=== PATIENT | female | born 1950 | race Caucasian/White ===

== ENCOUNTER 2019-04-04 04:42 | Inpatient (IN) ==
[2019-04-04] MEDS ORDERED: Isovue-370 500 ML BOTTLE IVP ONE ×3 (05:01→05:42)
--- NOTE | 2019-04-04 05:11 | Emergency Department Note ---
Disposition Clinical Impression: Nausea & vomiting Qualifiers: Vomiting type: unspecified Vomiting Intractability: unspecified Qualified Code(s): R11.2 - Nausea with vomiting, unspecified Disposition: Still a Patient Referrals: Golden Rivera [Primary Care Provider] - Forms: ED Satisfaction Letter Time of Disposition: 07:05 General Adult HPI - General Stated complaint: N/V Time Seen by Provider: 04/04/19 04:49 Source: patient, family, EMS Mode of arrival: EMS Limitations: no limitations Nursing Notes Reviewed: Yes Vital Signs Reviewed: Yes - History of Present Illness HPI Narrative: Patient is a 53-year-old female history of lung cancer and radiation presenting the emergency department for nausea and vomiting. Patient states that partially 4 hours ago she developed severe nausea and vomiting as well as chest pain and shortness of breath. Patient states she is here at the hospital yesterday for radiation treatment and received IV fluids. Patient describes the chest pain is substernal pressure that does not radiate. The patient does not use oxygen at home. EMS reported her pulse ox at 89% here on 2 L. - Related Data Home Medications Medication Instructions Recorded Confirmed Acetaminophen [Tylenol] 500 mg PO Q6HR 03/20/19 03/29/19 Albuterol Sulfate [Proventil 2 puff IH Q6HR 03/20/19 03/29/19 Inhaler] Levothyroxine [Synthroid] 50 mcg PO 0630 03/20/19 03/29/19 Metoprolol [Lopressor] 25 mg PO DAILY 03/20/19 03/29/19 Morphine Sulfate [Arymo ER] 15 mg PO Q12H PRN 03/20/19 03/29/19 Multivitamin [One Daily] 1 each PO DAILY 03/20/19 03/29/19 Ondansetron HCl [Zofran] 4 mg PO Q6H PRN 03/20/19 03/29/19 Polyethylene Glycol 3350 [MiraLAX] 17 gm PO DAILY 03/20/19 03/29/19 Prochlorperazine Maleate 10 mg PO Q6HR 03/20/19 03/29/19 [Compazine] metFORMIN [Glucophage] 500 mg PO BIDWM 03/20/19 03/29/19 Lidocaine/Prilocaine CREAM [Emla] 1 gm TP ONCE 03/29/19 03/29/19 Magic Mouthwash [Magic Mouthwash 10 ml PO QID PRN 03/29/19 03/29/19 BLM] Allergies Allergy/AdvReac Type Severity Reaction Status Date / Time No Known Allergies Allergy Verified 03/29/19 08:36 All systems ED: reviewed and negative except as stated. Review of Systems: As Per HPI Constitutional: Denies: fever, chills Eyes: Denies: eye pain, eye discharge ENT ED: Denies: ear pain, throat pain Cardiovascular: Reports: chest pain, palpitations, dyspnea on exertion Respiratory: Reports: cough. Denies: dyspnea Gastrointestinal: Reports: abdominal pain, nausea, vomiting Genitourinary: Denies: urgency, dysuria Musculoskeletal: Denies: back pain, neck pain Integumentary: Denies: rash, abrasion Neurological: Denies: headache, weakness Psychiatric: Denies: anxiety, depression Endocrine: Denies: fatigue, heat or cold intolerance Hematological/Lymphatic: Denies: easy bleeding, easy bruising Allergic/Immunologic: Denies: facial swelling Past Medical History - Past Medical History Attestation: Yes The following information was validated with the patient. Medical history: Reports: cancer, diabetes, thyroid disease Psychiatric history: Reports: no psych history - Social History Smoking Status: Light tobacco smoker Smokeless Tobacco Status: No Alcohol use: Reports: none Drug use: Reports: none Physical Exam - General Limitations: no limitations General appearance: alert, in no apparent distress - Head Head exam: atraumatic, normocephalic - Eye Eye exam: Present: normal appearance, PERRL, EOMI. Absent: scleral icterus, conjunctival injection - ENT ENT exam: normal exam, normal oropharynx, mucous membranes moist - Neck Neck exam: Present: normal inspection, full ROM - Chest Chest inspection: Present: normal inspection, symmetric chest wall rise - Respiratory Respiratory exam: Present: other (Course lung sounds on the right side diminished left) - Cardiovascular Cardiovascular exam: Present: normal rhythm, tachycardia, normal heart sounds - Abdominal Exam Abdominal exam: Present: soft, Non-Tender. Absent: tenderness, distention, guarding - Extremities Exam Extremities exam: Present: other (Right-sided 1+ pitting edema) - Neurological Exam Neurological exam: Present: alert, oriented X3 - Psychiatric Psychiatric exam: Present: normal affect, normal mood - Skin Skin exam: Present: warm, dry Course Vital Signs Temperature 97.7 F 04/04/19 04:54 Pulse Rate 111 04/04/19 04:54 Respiratory Rate 31 04/04/19 04:54 Blood Pressure 157/84 04/04/19 04:54 O2 Sat by Pulse Oximetry 90 04/04/19 04:54 Temperature 97.7 F 04/04/19 04:54 Pulse Rate 117 04/04/19 06:31 Respiratory Rate 34 04/04/19 06:31 Blood Pressure 132/88 04/04/19 06:31 O2 Sat by Pulse Oximetry 96 04/04/19 06:31 Oxygen Delivery Oxygen Delivery Bipap Medical Decision Making - MDM Narrative Medical decision making narrative: Patient 58-year-old female history of cancer presenting emergency department with nausea and vomiting, chest pain, shortness of breath, hypoxia concerning for pulmonary embolism or cardiopulmonary cause. We will evaluate this with basic labs and a CT scan of the chest and abdomen and pelvis. Patient was hypoxic and we gradually sent up from nasal cannula to a Ventimask. The patient was satting in the low 80s and it was decided to start BiPAP. She responded well up to 95 with this. Patient signed out to the day team. Dr. Keshia Jade. Please refer to her note for further evaluation and treatment of the patient. - Medical Records Medical records reviewed: Yes I reviewed the patient's medical records. - Lab Data Lab results reviewed: Yes I reviewed the patient's lab results. Result diagrams: 04/04/19 05:17 04/04/19 05:17 Lab Results 04/04/19 04/04/19 04/04/19 Range/Units 05:17 05:17 05:17 WBC 8.0 (4.3-11.1) K/mcL RBC 3.98 (3.82-4.97) M/mcL Hgb 11.2 L (11.5-15.4) g/dL Hct 35.9 (35.3-44.9) % MCV 90.2 (83.0-100.0) fL MCH 28.1 (28.0-33.3) pg MCHC 31.2 L (31.6-35.5) g/dL RDW 16.1 H (11.5-14.5) % Plt Count 132 L (140-400) K/mcL MPV 9.4 (9.4-12.4) fL Immature Gran % 0.9 (0-4) % Seg Neutrophils % 90.0 % Lymphocytes % 3.1 % Monocytes % 5.6 % Eosinophils % 0.0 % Basophils % 0.4 % Neutrophils # 7.2 (1.6-8.9) K/mcL Lymphocytes # 0.3 L (0.6-4.6) K/mcL Monocytes # 0.5 (0.0-1.3) K/mcL Eosinophils # 0.0 (0.0-0.6) K/mcL Basophils # 0.0 (0.0-0.2) K/mcL Nucleated RBCs/100 WBC 0.4 H (0) /100 WBC Platelet Estimate Normal (Normal) Polychromasia 1+ A (Not Present) Macrocytosis Present A (Not Present) PT 16.6 H (9.4-12.1) Seconds INR 1.5 APTT 25.4 L (26.0-36.0) Seconds Sodium 136 (136-145) mEq/L Potassium 4.5 (3.5-5.1) mEq/L Chloride 95 L (98-107) mEq/L Carbon Dioxide 27 (23-29) mEq/L BUN 37 H (8-23) mg/dL Creatinine 1.63 H (0.60-1.20) mg/dL Est GFR ( Amer) 38 L (> 60) Est GFR (Non-Af Amer) 31 L (> 60) BUN/Creatinine Ratio 23 (6-26) Glucose 211 H (70-105) mg/dL Calculated Osmolality 297 (280-300) Calcium 8.7 (8.6-10.3) mg/dL Troponin I < 0.03 (< 0.04) ng/mL Lipase < 3 L (11-82) Units/L - Radiology Data Radiology results reviewed: Yes I reviewed the patient's radiology results. - EKG Data EKG #1 EKG attestation: Yes I reviewed and interpreted this EKG. EKG results narrative: EKG performed at 624 reviewed by myself and attending shows a ventricular bigeminal rhythm at a rate of 125, SD 117, QRS 82, QTC 407. There are no new ST elevations or T-wave changes no other signs of ischemia. When compared with EKG performed on the same day earlier she has a new bigeminal pattern. EKG #2 EKG attestation: Yes I reviewed and interpreted this EKG. EKG results narrative: EKG performed at 624 reviewed by myself and attending shows a ventricular bigeminal rhythm at a rate of 125, SD 117, QRS 82, QTC 407. There are no new ST elevations or T-wave changes no other signs of ischemia. When compared with EKG performed on the same day earlier she has a new bigeminal pattern. S.B.A.R. - S.B.A.R. Transition of Care: Sign out Situation: Demographics, MOA Background: Presenting Complaint, Relevant PMH, Meds, & Allergies Assessment: Vital Signs, Course and respsone to treatment, Exam Concerns, Patient/Family Expectation, Pertinant Lab Results, Outstanding Labs Recommendation: Barrier(s) to disposition, Recommendation based on pending studies, treatments, or consults S.B.A.R. Report Given to: Keshia Jade
[2019-04-04] MEDS ORDERED: Ondansetron 4 MG/2 ML VIAL IVP ONE (05:12)
[2019-04-04 05:30] LABS: Basophils % 0.4 %; Hematocrit 35.9 % (35.3-44.9); Hemoglobin 11.2 g/dL (11.5-15.4); Immature Granulocytes % 0.9 % (0-4); Lymphocytes # 0.3 K/mcL (0.6-4.6); Lymphocytes % 3.1 %; Mean Corpuscular HGB Conc 31.2 g/dL (31.6-35.5); Mean Corpuscular Hemoglobin 28.1 pg (28.0-33.3); Mean Corpuscular Volume 90.2 fL (83.0-100.0); Mean Platelet Volume 9.4 fL (9.4-12.4); Monocytes # 0.5 K/mcL (0.0-1.3); Monocytes % 5.6 %; Neutrophils # 7.2 K/mcL (1.6-8.9); Nucleated Red Blood Cells 0.4 /100 WBC (0); Platelet Count 132 K/mcL (140-400); Red Blood Count 3.98 M/mcL (3.82-4.97); Red Cell Distribution Width 16.1 % (11.5-14.5)
[2019-04-04 05:39] LABS: INR 1.5; Prothrombin Time 16.6 Seconds (9.4-12.1)
[2019-04-04 05:41] LABS: Activated Partial Thrombo Time 25.4 Seconds (26.0-36.0)
[2019-04-04 05:45] LABS: Macrocytosis Present (Not Present); Platelet Estimate Normal (Normal); Polychromasia 1+ (Not Present)
[2019-04-04 05:52] LABS: BUN/Creatinine Ratio 23 (6-26); Blood Urea Nitrogen 37 mg/dL (8-23); Calcium 8.7 mg/dL (8.6-10.3); Carbon Dioxide 27 mEq/L (23-29); Chloride 95 mEq/L (98-107); Glucose 211 mg/dL (70-105); Osmolality,Calculated 297 (280-300); Potassium 4.5 mEq/L (3.5-5.1); Sodium 136 mEq/L (136-145); Troponin I < 0.03 ng/mL (< 0.04); eGFR For African Americans 38 (> 60); eGFR For Non-African Americans 31 (> 60)
[2019-04-04 06:11] LABS: Lipase < 3 Units/L (11-82)
[2019-04-04] MEDS: Aspirin 81 MG TAB.CHEW PO ONE ×2 (06:12→07:34)
--- NOTE | 2019-04-04 06:14 | Emergency Department Note ---
Disposition Clinical Impression: Nausea & vomiting Qualifiers: Vomiting type: unspecified Vomiting Intractability: unspecified Qualified Code(s): R11.2 - Nausea with vomiting, unspecified Disposition: Still a Patient Condition: Good Referrals: Golden Rivera [Primary Care Provider] - Forms: ED Satisfaction Letter Time of Disposition: 06:59 General Adult HPI - General Chief complaint: ED Nausea/Vomiting/Diarrhea Stated complaint: N/V Time Seen by Provider: 04/04/19 04:49 Source: patient, family, EMS Mode of arrival: EMS Limitations: no limitations - History of Present Illness Pain Scale: 5 - Related Data Home Medications Medication Instructions Recorded Confirmed Acetaminophen [Tylenol] 500 mg PO Q6HR 03/20/19 03/29/19 Albuterol Sulfate [Proventil 2 puff IH Q6HR 03/20/19 03/29/19 Inhaler] Levothyroxine [Synthroid] 50 mcg PO 0630 03/20/19 03/29/19 Metoprolol [Lopressor] 25 mg PO DAILY 03/20/19 03/29/19 Morphine Sulfate [Arymo ER] 15 mg PO Q12H PRN 03/20/19 03/29/19 Multivitamin [One Daily] 1 each PO DAILY 03/20/19 03/29/19 Ondansetron HCl [Zofran] 4 mg PO Q6H PRN 03/20/19 03/29/19 Polyethylene Glycol 3350 [MiraLAX] 17 gm PO DAILY 03/20/19 03/29/19 Prochlorperazine Maleate 10 mg PO Q6HR 03/20/19 03/29/19 [Compazine] metFORMIN [Glucophage] 500 mg PO BIDWM 03/20/19 03/29/19 Lidocaine/Prilocaine CREAM [Emla] 1 gm TP ONCE 03/29/19 03/29/19 Magic Mouthwash [Magic Mouthwash 10 ml PO QID PRN 03/29/19 03/29/19 BLM] Allergies Allergy/AdvReac Type Severity Reaction Status Date / Time No Known Allergies Allergy Verified 03/29/19 08:36 Constitutional: Denies: fever, chills Eyes: Denies: eye pain, eye discharge ENT ED: Denies: ear pain, throat pain Cardiovascular: Reports: chest pain, palpitations, dyspnea on exertion Respiratory: Reports: cough. Denies: dyspnea Gastrointestinal: Reports: abdominal pain, nausea, vomiting Genitourinary: Denies: urgency, dysuria Musculoskeletal: Denies: back pain, neck pain Integumentary: Denies: rash, abrasion Neurological: Denies: headache, weakness Psychiatric: Denies: anxiety, depression Endocrine: Denies: fatigue, heat or cold intolerance Hematological/Lymphatic: Denies: easy bleeding, easy bruising Allergic/Immunologic: Denies: facial swelling Past Medical History - Past Medical History Medical history: Reports: cancer, diabetes, thyroid disease Psychiatric history: Reports: no psych history - Social History Smoking Status: Light tobacco smoker Smokeless Tobacco Status: No Alcohol use: Reports: none Drug use: Reports: none Physical Exam - General Limitations: no limitations General appearance: alert, in no apparent distress Course Vital Signs Temperature 97.7 F 04/04/19 04:54 Pulse Rate 111 04/04/19 04:54 Respiratory Rate 31 04/04/19 04:54 Blood Pressure 157/84 04/04/19 04:54 O2 Sat by Pulse Oximetry 90 04/04/19 04:54 Temperature 97.7 F 04/04/19 04:54 Pulse Rate 117 04/04/19 06:31 Respiratory Rate 34 04/04/19 06:31 Blood Pressure 132/88 04/04/19 06:31 O2 Sat by Pulse Oximetry 96 04/04/19 06:31 Oxygen Delivery Oxygen Delivery Bipap Medical Decision Making - Lab Data Result diagrams: 04/04/19 05:17 04/04/19 05:17 Lab Results 04/04/19 04/04/19 04/04/19 Range/Units 05:17 05:17 05:17 WBC 8.0 (4.3-11.1) K/mcL RBC 3.98 (3.82-4.97) M/mcL Hgb 11.2 L (11.5-15.4) g/dL Hct 35.9 (35.3-44.9) % MCV 90.2 (83.0-100.0) fL MCH 28.1 (28.0-33.3) pg MCHC 31.2 L (31.6-35.5) g/dL RDW 16.1 H (11.5-14.5) % Plt Count 132 L (140-400) K/mcL MPV 9.4 (9.4-12.4) fL Immature Gran % 0.9 (0-4) % Seg Neutrophils % 90.0 % Lymphocytes % 3.1 % Monocytes % 5.6 % Eosinophils % 0.0 % Basophils % 0.4 % Neutrophils # 7.2 (1.6-8.9) K/mcL Lymphocytes # 0.3 L (0.6-4.6) K/mcL Monocytes # 0.5 (0.0-1.3) K/mcL Eosinophils # 0.0 (0.0-0.6) K/mcL Basophils # 0.0 (0.0-0.2) K/mcL Nucleated RBCs/100 WBC 0.4 H (0) /100 WBC Platelet Estimate Normal (Normal) Polychromasia 1+ A (Not Present) Macrocytosis Present A (Not Present) PT 16.6 H (9.4-12.1) Seconds INR 1.5 APTT 25.4 L (26.0-36.0) Seconds Sodium 136 (136-145) mEq/L Potassium 4.5 (3.5-5.1) mEq/L Chloride 95 L (98-107) mEq/L Carbon Dioxide 27 (23-29) mEq/L BUN 37 H (8-23) mg/dL Creatinine 1.63 H (0.60-1.20) mg/dL Est GFR ( Amer) 38 L (> 60) Est GFR (Non-Af Amer) 31 L (> 60) BUN/Creatinine Ratio 23 (6-26) Glucose 211 H (70-105) mg/dL Calculated Osmolality 297 (280-300) Calcium 8.7 (8.6-10.3) mg/dL Troponin I < 0.03 (< 0.04) ng/mL Lipase < 3 L (11-82) Units/L Attestation Statement - Attestation Attestation: I examined this patient and my medical decision-making was reviewed with the Resident Physician. I agree with the documented findings, disposition and treatment plan as described except to the extent set forth below. Patient 68-year-old female with prior history of lung cancer that presents to the emergency department with chief complaint of chest pain and shortness of breath. The patient also has been having nausea and vomiting and diarrhea and is felt like she has been extremely dehydration. Physical exam patient is awake alert requiring supplemental oxygen the patient is mildly Lower extremity she has some mild edema present abdomen is soft but te nder to palpation Medical decision management given the patient's prior history of neoplasm and the history of shortness of breath requiring oxygen patient cannot be excluded for the possibility of pulmonary embolism the patient will undergo CT imaging of the chest and also the abdomen pelvis will be included during the scan. The patient was started on BiPAP because she was requiring additional oxygen that can be provided be either nasal cannula or Venturi mask. I personally supervised and was present for the sarabia/critical portions of the following procedures completed by the resident:EKG.
[2019-04-04] MEDS ORDERED: 0.9 % Sodium Chloride 1,000 ML IVC ONE ×3 (07:45→22:53)
[2019-04-04] MEDS ORDERED: Piperacillin/Tazobactam 3.375 GM in 0.9 % Sodium Chloride Mini Bag 100 ML IVPB ONE (07:45)
[2019-04-04] MEDS ORDERED: *HR* FentaNYL (PF) 100 MCG/2 ML VIAL IVP ONE (07:47)
[2019-04-04] MEDS ORDERED: Metoclopramide 10 MG/2 ML VIAL IVP ONE (07:47)
[2019-04-04] MEDS ORDERED: *HR* Metoprolol 5 MG/5 ML VIAL IVP ONE (08:01)
--- NOTE | 2019-04-04 08:12 | Emergency Department Note ---
Disposition Clinical Impression: Intestinal necrosis, Abdominal abscess, Atrial fibrillation with RVR, Pneumatosis intestinalis Disposition: Admitted As Inpatient Condition: Fair Time of Disposition: 08:14 General Adult HPI - General Chief complaint: ED Nausea/Vomiting/Diarrhea Stated complaint: N/V Time Seen by Provider: 04/04/19 04:49 Source: patient, family, EMS Mode of arrival: EMS Limitations: no limitations - History of Present Illness Pain Scale: 4 - Related Data Home Medications Medication Instructions Recorded Confirmed Acetaminophen [Tylenol] 500 mg PO Q6HR 03/20/19 03/29/19 Albuterol Sulfate [Proventil 2 puff IH Q6HR 03/20/19 03/29/19 Inhaler] Levothyroxine [Synthroid] 50 mcg PO 0630 03/20/19 03/29/19 Metoprolol [Lopressor] 25 mg PO DAILY 03/20/19 03/29/19 Morphine Sulfate [Arymo ER] 15 mg PO Q12H PRN 03/20/19 03/29/19 Multivitamin [One Daily] 1 each PO DAILY 03/20/19 03/29/19 Ondansetron HCl [Zofran] 4 mg PO Q6H PRN 03/20/19 03/29/19 Polyethylene Glycol 3350 [MiraLAX] 17 gm PO DAILY 03/20/19 03/29/19 Prochlorperazine Maleate 10 mg PO Q6HR 03/20/19 03/29/19 [Compazine] metFORMIN [Glucophage] 500 mg PO BIDWM 03/20/19 03/29/19 Lidocaine/Prilocaine CREAM [Emla] 1 gm TP ONCE 03/29/19 03/29/19 Magic Mouthwash [Magic Mouthwash 10 ml PO QID PRN 03/29/19 03/29/19 BLM] Allergies Allergy/AdvReac Type Severity Reaction Status Date / Time No Known Allergies Allergy Verified 03/29/19 08:36 Constitutional: Denies: fever, chills Eyes: Denies: eye pain, eye discharge ENT ED: Denies: ear pain, throat pain Cardiovascular: Reports: chest pain, palpitations, dyspnea on exertion Respiratory: Reports: cough. Denies: dyspnea Gastrointestinal: Reports: abdominal pain, nausea, vomiting Genitourinary: Denies: urgency, dysuria Musculoskeletal: Denies: back pain, neck pain Integumentary: Denies: rash, abrasion Neurological: Denies: headache, weakness Psychiatric: Denies: anxiety, depression Endocrine: Denies: fatigue, heat or cold intolerance Hematological/Lymphatic: Denies: easy bleeding, easy bruising Allergic/Immunologic: Denies: facial swelling Past Medical History - Past Medical History Medical history: Reports: cancer, diabetes, thyroid disease Psychiatric history: Reports: no psych history - Social History Smoking Status: Light tobacco smoker Smokeless Tobacco Status: No Alcohol use: Reports: none Drug use: Reports: none Physical Exam - General Limitations: no limitations General appearance: alert, in no apparent distress Course - Reevaluation(s) Reevaluation #1: patient became incresingly more hypoxic and appears to be tiring out. WE have discussed the need for an ET tube and she had agreed. I have update dDr. Monzon and Dr. Andres on her status. Time: 10:01 - Consultations Consultation #1: Dr. Montoya has called to inform that jorge alberto has pneumoperitoneum with absceess and necrosis of the jejenum and dudodenum. I have discussed case with Dr. Garcia who will be in the ED shortly to examine patient. Jorge Alberto is now afib RVR as she as 77 bpm rate controlle don intial presentation and I anticipate that she i going into severe sepsis. I have added lactic acid and blood cultures and tammie slowly deliver the 30ml/kg IVF as she has mild ascites and pulmonary edema and would jose guadalupe to avoid have her go into respiatory distess. I have discussed with patient her code status and it is full code. I have added zosyn therapy at this time. Will consider intubation if she does not othewise improve or requires a central line Time: 08:12 Consultation #2: discussed case with Dr. Andres who has accepted patient ot the ICU. Dr. garcia at bedside currenty examining jorge alberto and has requested NG tube placement. discusssed with family and ptinet and they are agreeable to plan Time: 08:43 Vital Signs Temperature 97.7 F 04/04/19 04:54 Pulse Rate 111 04/04/19 04:54 Respiratory Rate 31 04/04/19 04:54 Blood Pressure 157/84 04/04/19 04:54 O2 Sat by Pulse Oximetry 90 04/04/19 04:54 Temperature 97.7 F 04/04/19 04:54 Pulse Rate 134 04/04/19 09:19 Respiratory Rate 32 04/04/19 08:55 Blood Pressure 122/73 04/04/19 09:19 O2 Sat by Pulse Oximetry 84 04/04/19 09:19 Oxygen Delivery Oxygen Delivery Bipap Procedures - Intubation Time out performed: Yes sedative: Etomidate Mg Given: 20 paralytic: Rocuronium Mg Given: 100 Laryngoscope: Hilary ET Tube Size: 7 ET Tube Uncuffed: Yes Tube Secured Depth (cm): 25 Tube Secured Location: lips Tube Placement Confirmation: visualized tube passing through cords, equal breath sounds bilaterally, no breath sounds over epigastrium Patient Tolerated Procedure: well Intubation Complications: hypotension, other (vomitus in the airway) Medical Decision Making - Lab Data Result diagrams: 04/04/19 05:17 04/04/19 05:17 Lab Results 04/04/19 04/04/19 04/04/19 Range/Units 05:17 05:17 05:17 WBC 8.0 (4.3-11.1) K/mcL RBC 3.98 (3.82-4.97) M/mcL Hgb 11.2 L (11.5-15.4) g/dL Hct 35.9 (35.3-44.9) % MCV 90.2 (83.0-100.0) fL MCH 28.1 (28.0-33.3) pg MCHC 31.2 L (31.6-35.5) g/dL RDW 16.1 H (11.5-14.5) % Plt Count 132 L (140-400) K/mcL MPV 9.4 (9.4-12.4) fL Immature Gran % 0.9 (0-4) % Seg Neutrophils % 90.0 % Lymphocytes % 3.1 % Monocytes % 5.6 % Eosinophils % 0.0 % Basophils % 0.4 % Neutrophils # 7.2 (1.6-8.9) K/mcL Lymphocytes # 0.3 L (0.6-4.6) K/mcL Monocytes # 0.5 (0.0-1.3) K/mcL Eosinophils # 0.0 (0.0-0.6) K/mcL Basophils # 0.0 (0.0-0.2) K/mcL Nucleated RBCs/100 WBC 0.4 H (0) /100 WBC Platelet Estimate Normal (Normal) Polychromasia 1+ A (Not Present) Macrocytosis Present A (Not Present) PT 16.6 H (9.4-12.1) Seconds INR 1.5 APTT 25.4 L (26.0-36.0) Seconds Sodium 136 (136-145) mEq/L Potassium 4.5 (3.5-5.1) mEq/L Chloride 95 L (98-107) mEq/L Carbon Dioxide 27 (23-29) mEq/L BUN 37 H (8-23) mg/dL Creatinine 1.63 H (0.60-1.20) mg/dL Est GFR ( Amer) 38 L (> 60) Est GFR (Non-Af Amer) 31 L (> 60) BUN/Creatinine Ratio 23 (6-26) Glucose 211 H (70-105) mg/dL Calculated Osmolality 297 (280-300) Lactic Acid (0.5-2.2) mmol/L Calcium 8.7 (8.6-10.3) mg/dL Troponin I < 0.03 (< 0.04) ng/mL Lipase < 3 L (11-82) Units/L 04/04/19 Range/Units 08:03 WBC (4.3-11.1) K/mcL RBC (3.82-4.97) M/mcL Hgb (11.5-15.4) g/dL Hct (35.3-44.9) % MCV (83.0-100.0) fL MCH (28.0-33.3) pg MCHC (31.6-35.5) g/dL RDW (11.5-14.5) % Plt Count (140-400) K/mcL MPV (9.4-12.4) fL Immature Gran % (0-4) % Seg Neutrophils % % Lymphocytes % % Monocytes % % Eosinophils % % Basophils % % Neutrophils # (1.6-8.9) K/mcL Lymphocytes # (0.6-4.6) K/mcL Monocytes # (0.0-1.3) K/mcL Eosinophils # (0.0-0.6) K/mcL Basophils # (0.0-0.2) K/mcL Nucleated RBCs/100 WBC (0) /100 WBC Platelet Estimate (Normal) Polychromasia (Not Present) Macrocytosis (Not Present) PT (9.4-12.1) Seconds INR APTT (26.0-36.0) Seconds Sodium (136-145) mEq/L Potassium (3.5-5.1) mEq/L Chloride (98-107) mEq/L Carbon Dioxide (23-29) mEq/L BUN (8-23) mg/dL Creatinine (0.60-1.20) mg/dL Est GFR ( Amer) (> 60) Est GFR (Non-Af Amer) (> 60) BUN/Creatinine Ratio (6-26) Glucose (70-105) mg/dL Calculated Osmolality (280-300) Lactic Acid 2.0 (0.5-2.2) mmol/L Calcium (8.6-10.3) mg/dL Troponin I (< 0.04) ng/mL Lipase (11-82) Units/L
--- NOTE | 2019-04-04 08:47 | AcuteCare Surgery Consult Note ---
Date of Encounter: 04/04/19 Time of Encounter: 08:25 Assessment and Plan (1) Abdominal abscess Current Visit: Yes Status: Acute Abdominal abscess formation with pneumatosis of the small bowel likely secondary to small bowel necrosis. She is hypoxic with large pleural effusion on the left. She is currently undergoing radiation and chemotherapy for stage III lung cancer with curative intent. She has A. fib with RVR. We will plan admission to the intensive care unit and stabilization. She will require exploratory laparotomy for treatment of the small bowel necrosis History of Present Illness Consult date: 04/04/19 Reason for consult: abdominal pain History of present illness: The patient is a 68-year-old female currently under treatment for lung cancer. She received both chemotherapy and radiation therapy. She had thoracentesis last week. She presented to the emergency room with nausea and vomiting and hypoxia. During evaluation she developed tachycardia with atrial fibrillation. A CAT scan demonstrated a significant left pleural effusion with collapse of the left lower lobe lobe. Proximal small bowel pneumatosis with a small amount of pneumoperitoneum and abscess formation is noted. The patient has a massively dilated stomach. We will plan to discuss her care with her computer systems technician oncologist to outline the goals of care area she will need nasogastric tube decompression. We will plan to place her in the intensive care unit secondary to hypoxia. I will consult thoracic surgery for management of the left pleural effusion and hypoxia. Pulmonary critical care will also be involved in her care. She may require exploratory laparotomy later today. With her current level of hypoxia and poor overall condition she she would have a high mortality and morbidity rate with exploratory laparotomy. Next I personally reviewed the CAT scan of the abdomen. She does have areas of pneumoperitoneum as well as abscess formation and pneumatosis of the proximal jejunum. This appears to have caused obstruction. Distal small bowel was flaccid. Proximal jejunum and duodenum are dilated Past Med Surg Social Fam HX - Past Medical History Medical history: cancer, diabetes, thyroid disease Additional medical history: Lung Cancer Psychiatric history: no psych history - Past Surgical History Additional surgical history: tubal, skin graft leg - Social History Smoking Status: Light tobacco smoker Smokeless Tobacco Status: No Alcohol use: none Drug use: none Medications and Allergies Acetaminophen [Tylenol] 500 mg PO Q6HR 03/20/19 [History] Albuterol Sulfate [Proventil Inhaler] 2 puff IH Q6HR 03/20/19 [History] Levothyroxine [Synthroid] 50 mcg PO 0630 03/20/19 [History] Metoprolol [Lopressor] 25 mg PO DAILY 03/20/19 [History] Morphine Sulfate [Arymo ER] 15 mg PO Q12H PRN 03/20/19 [History] Multivitamin [One Daily] 1 each PO DAILY 03/20/19 [History] Ondansetron HCl [Zofran] 4 mg PO Q6H PRN 03/20/19 [History] Polyethylene Glycol 3350 [MiraLAX] 17 gm PO DAILY 03/20/19 [History] Prochlorperazine Maleate [Compazine] 10 mg PO Q6HR 03/20/19 [History] metFORMIN [Glucophage] 500 mg PO BIDWM 03/20/19 [History] Lidocaine/Prilocaine CREAM [Emla] 1 gm TP ONCE 03/29/19 [History] Magic Mouthwash [Magic Mouthwash BLM] 10 ml PO QID PRN 03/29/19 [History] Allergy/AdvReac Type Severity Reaction Status Date / Time No Known Allergies Allergy Verified 03/29/19 08:36 Review of Systems All systems PM: The remainder of the systems were reviewed and are negative General Surgery Exam Initial Vital Signs Temp Pulse Resp BP Pulse Ox 97.7 F 111 31 157/84 90 04/04/19 04:54 04/04/19 04:54 04/04/19 04:54 04/04/19 04:54 04/04/19 04:54 - General physical appearance severe distress, other (Hypoxic and struggling to breathe. She is nauseated) - Respiratory crackles: right, wheezing: right, absent breath sounds: left - Cardiovascular Cardiovascular exam: Present: tachycardia, irregular rhythm, no murmurs/rubs/gallops - Abdomen Abdomen general surgery: Present: distended, tender Abdominal Tenderness: Present: diffusely (No involuntary guarding or rebound. She is tender to deep palpation) - Neurologic Present: CN 2-12 grossly intact, normal coordination, normal sensation - Psychiatric Psychiatric general surgery: Present: appropriate, oriented to person, oriented to place, oriented to time, speech is normal, memory intact Exam Initial Vital Signs Temp Pulse Resp BP Pulse Ox 97.7 F 111 31 157/84 90 04/04/19 04:54 04/04/19 04:54 04/04/19 04:54 04/04/19 04:54 04/04/19 04:54 Results - Labs 04/04/19 05:17 04/04/19 05:17 Abnormal lab results Hgb 11.2 g/dL (11.5-15.4) L 04/04/19 05:17 MCHC 31.2 g/dL (31.6-35.5) L 04/04/19 05:17 RDW 16.1 % (11.5-14.5) H 04/04/19 05:17 Plt Count 132 K/mcL (140-400) L 04/04/19 05:17 Lymphocytes # 0.3 K/mcL (0.6-4.6) L 04/04/19 05:17 Nucleated RBCs/100 WBC 0.4 /100 WBC (0) H 04/04/19 05:17 Polychromasia 1+ (Not Present) A 04/04/19 05:17 Macrocytosis Present (Not Present) A 04/04/19 05:17 PT 16.6 Seconds (9.4-12.1) H 04/04/19 05:17 APTT 25.4 Seconds (26.0-36.0) L 04/04/19 05:17 Chloride 95 mEq/L (98-107) L 04/04/19 05:17 BUN 37 mg/dL (8-23) H 04/04/19 05:17 Creatinine 1.63 mg/dL (0.60-1.20) H 04/04/19 05:17 Est GFR ( Amer) 38 (> 60) L 04/04/19 05:17 Est GFR (Non-Af Amer) 31 (> 60) L 04/04/19 05:17 Glucose 211 mg/dL (70-105) H 04/04/19 05:17 Lipase < 3 Units/L (11-82) L 04/04/19 05:17 Diabetes panel 04/04/19 Range/Units 05:17 Sodium 136 (136-145) mEq/L Potassium 4.5 (3.5-5.1) mEq/L Chloride 95 L (98-107) mEq/L Carbon Dioxide 27 (23-29) mEq/L BUN 37 H (8-23) mg/dL Creatinine 1.63 H (0.60-1.20) mg/dL Glucose 211 H (70-105) mg/dL Calcium 8.7 (8.6-10.3) mg/dL Calcium panel 04/04/19 Range/Units 05:17 Calcium 8.7 (8.6-10.3) mg/dL Pituitary panel 04/04/19 Range/Units 05:17 Sodium 136 (136-145) mEq/L Potassium 4.5 (3.5-5.1) mEq/L Chloride 95 L (98-107) mEq/L Carbon Dioxide 27 (23-29) mEq/L BUN 37 H (8-23) mg/dL Creatinine 1.63 H (0.60-1.20) mg/dL Glucose 211 H (70-105) mg/dL Calcium 8.7 (8.6-10.3) mg/dL Adrenal panel 04/04/19 Range/Units 05:17 Sodium 136 (136-145) mEq/L Potassium 4.5 (3.5-5.1) mEq/L Chloride 95 L (98-107) mEq/L Carbon Dioxide 27 (23-29) mEq/L BUN 37 H (8-23) mg/dL Creatinine 1.63 H (0.60-1.20) mg/dL Glucose 211 H (70-105) mg/dL Calcium 8.7 (8.6-10.3) mg/dL All other labs normal. - Imaging CT scan - abdomen: image reviewed (I personally reviewed the CAT scan of the abdomen. She appears to have abscess formation the proximal jejunum. There are small areas of free air. She has a large left pleural effusion. Distal small bowel was flaccid. Proximal small bowel is dilated) Consult Discharge Plan - Plan Referrals: Golden Rivera [Primary Care Provider] -
[2019-04-04] MEDS ORDERED: *HR* Rocuronium Bromide 50 MG/5 ML VIAL IVP ONE (09:43)
[2019-04-04] MEDS ORDERED: *HR* Etomidate 20 MG/10 ML AMPUL IVP ONE ×2 (09:43→12:55)
[2019-04-04] MEDS ORDERED: Dexmedetomidine HCl 400 MCG/100 ML MLS IVC SCH (09:45)
[2019-04-04] MEDS ORDERED: 0.9 % Sodium Chloride 1,000 ML ONE ×2 (09:47→15:29)
[2019-04-04] MEDS ORDERED: FentaNYL (PF) 1,000 MCG in 0.9 % Sodium Chloride 80 ML IVC SCH ×2 (10:00→18:35)
[2019-04-04] MEDS ORDERED: Norepinephrine 4 MG in 0.9 % Sodium Chloride 250 ML IVC SCH (10:00)
[2019-04-04 10:17] LABS: ABG Base Excess 1 mEq/L (-2 to 3); ABG HCO3 28 mEq/L (21-27); ABG Oxygen Saturation 99 % (95-98); ABG PCO2 55 mmHg (35-45); ABG PH 7.31 pH Units (7.32-7.45); ABG PO2 127 mmHg (85-104); ABG TCO2 30 mEq/L (20-26); Blood Gas Modality ASSIST CONTROL; Blood Gas PEEP 5 cm H2O; Blood Gas VT 450 cc
[2019-04-04] MEDS ORDERED: D5% in Water 250 ML IV BAG IV ONE (10:26)
[2019-04-04] MEDS ORDERED: *HR* Norepinephrine 4 MG/4 ML VIAL IVC ONE ×2 (10:26→14:20)
[2019-04-04] MEDS ORDERED: Phenylephrine 50 MG in 0.9 % Sodium Chloride 250 ML IVC SCH (11:00)
--- NOTE | 2019-04-04 11:48 | Pulmonology Consult Note ---
<Con Deras Nancy - Last Filed: 04/04/19 17:05> Date of Encounter: 04/04/19 Time of Encounter: 11:45 Assessment and Plan (1) Abdominal abscess Current Visit: Yes Status: Acute CT of the abdomen from 04/04 with necrosis of the duodenum and 50 cm of proximal jejunum with pneumatosis intestinalis and distal duodenal versus proximal jejunal perforation with adjacent partially loculated 8.5 cm peritoneal abscess extending into the left lower quadrant. Pt was stabilized in the ICU for surgery -Pt taken by surgery to the OR, will follow recommendations following operation -We will start patient on broad-spectrum antibiotic therapy including vancomycin, Zosyn, and metronidazole following surgery (2) Intestinal necrosis Current Visit: Yes Status: Acute Plan as stated above (3) Pneumatosis intestinalis Current Visit: Yes Status: Acute Plan as stated above (4) Atrial fibrillation with RVR Current Visit: Yes Status: Acute In ED patient started to have elevated heart rate and was found to be in A. fib RVR Patient had been started on levophed in the ED in order to maintain blood pressure. Norepinephrine stopped prior to arrival to the ICU with blood pressures remaining stable, but heart rate greater than 150 His M drip was initiated at that time with some rate control at approximately 110 prior to surgery -Following surgery if patient is no longer requiring pressors and blood pressure is adequate with elevated heart rate will restart Cardizem at that time. (5) Lung cancer Current Visit: No Status: Acute Patient with known mass of the left hilum which on CTA of the chest shows increasing of cavitation and obstruction and filling of the bronchial diffusely within the left lower lobe with associated. Bronchial vascular nodularity as well as similar appearing collapsed the left upper lobe with increased small left-sided pleural effusion surrounding left upper lobe and similar sized pleural fluid collection seen within the left lung base.. 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 Patient also complaining of n/v/d. Patient was initially on miller pplemental oxygen upon arrival to the ED, but patient became hypoxic and BiPAP was started due to oxygen requirement. Patient's condition continued to deteriorate and intubation and sedation was warranted. Patient was then admitted to the ICU for ventilator management and stabilization prior to em ergent surgery. Patient also found to be in A. fib RVR in the ED prior to transfer to ICU. Prior to moving patient to the ICU patient had a CTA of the chest which showed no evidence of PE, but increased cavitation seen within the unknown left hilar mass with obstruction and filling of the bronchi diffusely within the left lower lobe. CT abdomen with Duodenum through approximately 50 cm of proximal jejunal bowel necrosis with pneumatosis intestinalis and distal duodenal versus proximal jejunal perforation with an adjacent partially loculated 8.5 cm peritoneal abscess extending into the left lower quadrant. Labs significant for an elevated creatinine at 1.63 and 8 and age of 11.2 and 35.9 with a normal white count at 8.0. Vital signs in ED with temperature of 97.7, pulse of 111, respira tory rate of 31, blood pressure 157/84, and O2 saturation 90% Patient had a CVC line placed to the left IJ in the ICU due to patient requiring vasopressors in the ED. They were not continued when patient was brought to the ICU as her blood pressure had remained stable, but patient was in A. fib RVR and Cardizem drip was initiated with some mitigation of tachycardia with an average rate of 110. Patient was then taken to surgery for an exploratory laparotomy. Past Med Surg Social Fam HX - Past Medical History Medical history: cancer, diabetes, thyroid disease Additional medical history: Lung Cancer Psychiatric history: no psych history - Past Surgical History Additional surgical history: tubal, skin graft leg - Social History Smoking Status: Light tobacco smoker Smokeless Tobacco Status: No Alcohol use: none Drug use: none Medications and Allergies Acetaminophen [Tylenol] 500 mg PO Q6HR 03/20/19 [History] Albuterol Sulfate [Proventil Inhaler] 2 puff IH Q6HR 03/20/19 [History] Levothyroxine [Synthroid] 50 mcg PO 0630 03/20/19 [History] Metoprolol [Lopressor] 25 mg PO DAILY 03/20/19 [History] Morphine Sulfate [Arymo ER] 15 mg PO Q12H PRN 03/20/19 [History] Multivitamin [One Daily] 1 each PO DAILY 03/20/19 [History] Ondansetron HCl [Zofran] 4 mg PO Q6H PRN 03/20/19 [History] Polyethylene Glycol 3350 [MiraLAX] 17 gm PO DAILY 03/20/19 [History] Prochlorperazine Maleate [Compazine] 10 mg PO Q6HR 03/20/19 [History] metFORMIN [Glucophage] 500 mg PO BIDWM 03/20/19 [History] Lidocaine/Prilocaine CREAM [Emla] 1 gm TP ONCE 03/29/19 [History] Magic Mouthwash [Magic Mouthwash BLM] 10 ml PO QID PRN 03/29/19 [History] Allergy/AdvReac Type Severity Reaction Status Date / Time No Known Allergies Allergy Verified 03/29/19 08:36 ROS unobtainable: due to endotracheal tube All Systems: The remainder of the systems were reviewed and are negative Physical Examination Vital Signs: Vital Signs, Last 4 Hours Pulse Resp BP Pulse Ox 04/04/19 11:33 16 199 04/04/19 10:25 16 98 04/04/19 09:19 134 122/73 84 04/04/19 08:55 109 32 110/82 91 04/04/19 08:12 145 29 113/94 99 General appearance: no acute distress, other (Intubated and sedated) Neck: no lymphadenopathy, no JVD Effort: normal Inspection: normal Auscultation: bilateral: clear Cardiovascular: other (Irregularly irregular at a rate of ~140) Gastrointestinal: normoactive bowel sounds, soft, non-distended Integumentary: normal Extremities: no cyanosis, no edema Musculoskeletal: no deformities unable to assess due to mental status Ventilator Settings Ventilator Settings: Ventilator Settings, Last 8 Hours Ventilator Tidal Volume 450 Setting Ventilator Tidal Volume 450 Setting Ventilator Tidal Volume 450 Setting Ventilator Respiratory Rate 16 Setting Ventilator Respiratory Rate 16 Setting Ventilator Respiratory Rate 16 Setting Actual Respiratory Rate 16 Actual Respiratory Rate 16 Positive End Expiratory 5 Pressure Positive End Expiratory 5 Pressure Positive End Expiratory 5 Pressure Peak Inspiratory Airway 38 Pressure Peak Inspiratory Airway 32 Pressure Results - Laboratory Findings CBC and BMP: 04/04/19 05:17 04/04/19 05:17 ABG ABG pH 7.31 pH Units (7.32-7.45) L 04/04/19 10:13 ABG pCO2 55 mmHg (35-45) H 04/04/19 10:13 ABG pO2 127 mmHg (85-104) H 04/04/19 10:13 ABG O2 Saturation 99 % (95-98) H 04/04/19 10:13 PT/INR, D-dimer PT 16.6 Seconds (9.4-12.1) H 04/04/19 05:17 Abnormal lab findings: Abnormal lab results Hgb 11.2 g/dL (11.5-15.4) L 04/04/19 05:17 MCHC 31.2 g/dL (31.6-35.5) L 04/04/19 05:17 RDW 16.1 % (11.5-14.5) H 04/04/19 05:17 Plt Count 132 K/mcL (140-400) L 04/04/19 05:17 Lymphocytes # 0.3 K/mcL (0.6-4.6) L 04/04/19 05:17 Nucleated RBCs/100 WBC 0.4 /100 WBC (0) H 04/04/19 05:17 Polychromasia 1+ (Not Present) A 04/04/19 05:17 Macrocytosis Present (Not Present) A 04/04/19 05:17 PT 16.6 Seconds (9.4-12.1) H 04/04/19 05:17 APTT 25.4 Seconds (26.0-36.0) L 04/04/19 05:17 ABG pH 7.31 pH Units (7.32-7.45) L 04/04/19 10:13 ABG pCO2 55 mmHg (35-45) H 04/04/19 10:13 ABG pO2 127 mmHg (85-104) H 04/04/19 10:13 ABG HCO3 28 mEq/L (21-27) H 04/04/19 10:13 ABG Total CO2 30 mEq/L (20-26) H 04/04/19 10:13 ABG O2 Saturation 99 % (95-98) H 04/04/19 10:13 Chloride 95 mEq/L (98-107) L 04/04/19 05:17 BUN 37 mg/dL (8-23) H 04/04/19 05:17 Creatinine 1.63 mg/dL (0.60-1.20) H 04/04/19 05:17 Est GFR ( Amer) 38 (> 60) L 04/04/19 05:17 Est GFR (Non-Af Amer) 31 (> 60) L 04/04/19 05:17 Glucose 211 mg/dL (70-105) H 04/04/19 05:17 Lipase < 3 Units/L (11-82) L 04/04/19 05:17 - Microbiology Findings Microbiology Findings: Microbiology, Last 48 Hours 04/04/19 08:03 Blood Culture - Preliminary Peripheral Venipuncture Culture is incubating and being continuously monitored for growth. Final report to follow. 04/04/19 08:13 Blood Culture - Preliminary Peripheral Venipuncture Culture is incubating and being continuously monitored for growth. Final report to follow. - Clinical Findings Intake & Output: Intake & Output 04/03/19 04/04/19 04/04/19 23:59 07:59 15:59 Intake Total 2099 Balance 2099 Weight 81.193 kg Consult Discharge Plan - Plan Referrals: Golden Rivera [Primary Care Provider] - <Dede Fraire - Last Filed: 04/04/19 21:05> Date of Encounter: 04/04/19 All Systems: The remainder of the systems were reviewed and are negative Physical Examination Vital Signs: Vital Signs, Last 4 Hours Temp Pulse Resp BP Pulse Ox 04/04/19 20:53 109 16 70/51 96 04/04/19 20:17 95.8 F L 04/04/19 20:09 16 93 04/04/19 19:52 105 16 72/53 92 04/04/19 19:00 109 16 74/53 92 04/04/19 18:41 109 04/04/19 18:15 16 100 04/04/19 18:00 110 16 92/54 88 Ventilator Settings Ventilator Settings: Ventilator Settings, Last 8 Hours Ventilator Tidal Volume 450 Setting Ventilator Tidal Volume 450 Setting Ventilator Tidal Volume 450 Setting Ventilator Tidal Volume 450 Setting Ventilator Tidal Volume 449 Setting Ventilator Tidal Volume 450 Setting Ventilator Tidal Volume 449 Setting Ventilator Tidal Volume 450 Setting Ventilator Tidal Volume 450 Setting Ventilator Tidal Volume 450 Setting Ventilator Tidal Volume 450 Setting Ventilator Respiratory Rate 16 Setting Ventilator Respiratory Rate 16 Setting Ventilator Respiratory Rate 16 Setting Ventilator Respiratory Rate 16 Setting Ventilator Respiratory Rate 16 Setting Ventilator Respiratory Rate 16 Setting Ventilator Respiratory Rate 16 Setting Ventilator Respiratory Rate 16 Setting Ventilator Respiratory Rate 16 Setting Ventilator Respiratory Rate 16 Setting Ventilator Respiratory Rate 16 Setting Actual Respiratory Rate 16 Actual Respiratory Rate 16 Actual Respiratory Rate 16 Actual Respiratory Rate 16 Actual Respiratory Rate 16 Actual Respiratory Rate 16 Actual Respiratory Rate 16 Actual Respiratory Rate 16 Actual Respiratory Rate 16 Actual Respiratory Rate 16 Actual Respiratory Rate 16 Positive End Expiratory 10 Pressure Positive End Expiratory 10 Pressure Positive End Expiratory 10 Pressure Positive End Expiratory 10 Pressure Positive End Expiratory 10 Pressure Positive End Expiratory 10 Pressure Positive End Expiratory 10 Pressure Positive End Expiratory 12 Pressure Positive End Expiratory 12 Pressure Positive End Expiratory 5 Pressure Positive End Expiratory 12 Pressure Peak Inspiratory Airway 32 Pressure Peak Inspiratory Airway 32 Pressure Peak Inspiratory Airway 33 Pressure Peak Inspiratory Airway 33 Pressure Peak Inspiratory Airway 32 Pressure Peak Inspiratory Airway 31 Pressure Peak Inspiratory Airway 32 Pressure Peak Inspiratory Airway 40 Pressure Peak Inspiratory Airway 43 Pressure Peak Inspiratory Airway 40 Pressure Results - Laboratory Findings CBC and BMP: 04/04/19 05:17 04/04/19 05:17 ABG ABG pH 7.31 pH Units (7.32-7.45) L 04/04/19 10:13 ABG pCO2 55 mmHg (35-45) H 04/04/19 10:13 ABG pO2 127 mmHg (85-104) H 04/04/19 10:13 ABG O2 Saturation 99 % (95-98) H 04/04/19 10:13 PT/INR, D-dimer PT 16.6 Seconds (9.4-12.1) H 04/04/19 05:17 Abnormal lab findings: Abnormal lab results Hgb 11.2 g/dL (11.5-15.4) L 04/04/19 05:17 MCHC 31.2 g/dL (31.6-35.5) L 04/04/19 05:17 RDW 16.1 % (11.5-14.5) H 04/04/19 05:17 Plt Count 132 K/mcL (140-400) L 04/04/19 05:17 Lymphocytes # 0.3 K/mcL (0.6-4.6) L 04/04/19 05:17 Nucleated RBCs/100 WBC 0.4 /100 WBC (0) H 04/04/19 05:17 Polychromasia 1+ (Not Present) A 04/04/19 05:17 Macrocytosis Present (Not Present) A 04/04/19 05:17 PT 16.6 Seconds (9.4-12.1) H 04/04/19 05:17 APTT 25.4 Seconds (26.0-36.0) L 04/04/19 05:17 ABG pH 7.31 pH Units (7.32-7.45) L 04/04/19 10:13 ABG pCO2 55 mmHg (35-45) H 04/04/19 10:13 ABG pO2 127 mmHg (85-104) H 04/04/19 10:13 ABG HCO3 28 mEq/L (21-27) H 04/04/19 10:13 ABG Total CO2 30 mEq/L (20-26) H 04/04/19 10:13 ABG O2 Saturation 99 % (95-98) H 04/04/19 10:13 Chloride 95 mEq/L (98-107) L 04/04/19 05:17 BUN 37 mg/dL (8-23) H 04/04/19 05:17 Creatinine 1.63 mg/dL (0.60-1.20) H 04/04/19 05:17 Est GFR ( Amer) 38 (> 60) L 04/04/19 05:17 Est GFR (Non-Af Amer) 31 (> 60) L 04/04/19 05:17 Glucose 211 mg/dL (70-105) H 04/04/19 05:17 Lipase < 3 Units/L (11-82) L 04/04/19 05:17 - Microbiology Findings Microbiology Findings: Microbiology, Last 48 Hours 04/04/19 08:03 Blood Culture - Preliminary Peripheral Venipuncture Culture is incubating and being continuously monitored for growth. Final report to follow. 04/04/19 08:13 Blood Culture - Preliminary Peripheral Venipuncture Culture is incubating and being continuously monitored for growth. Final report to follow. - Clinical Findings Intake & Output: Intake & Output 04/04/19 04/04/1904/04/19 07:59 15:59 23:59 Intake Total 2150 / 2904 754 / 2904 Output Total 0 / 400 400 / 400 Balance 2150 / 2504 354 / 2504 Weight 81.193 kg - Attending Attestation I saw and evaluated this patient and my medical decision-making was reviewed with the Resident Physician. I agree with the documented findings, disposition and treatment plan as described except to the extent set forth below. We independently had [id number] contact with the patient I spent 75 minutes of Critical Care time with this patient. It involved decision making of high complexity to assess, manipulate, and support vital organ system failure and/or to prevent further life threatening deterioration of the patient's condition. The time involved in the performance of separately reportable procedures was not counted toward critical care time. Patient seen and examined at bedside Labs, radiology, chart personally reviewed. Management was reviewed during multidisciplinary critical care rounds. 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 Pulm: Patient has acceptable oxygenation and ventilation will adjust the ventilator settings after the repeat blood gas. Patient went to the OR for bowel resection due to small cell abscess with ischemia of the colon with extensive diverticular disease Cards: Patient initially but was hemodynamically stable after surgery patient went into shock most likely septic shock. Patient had this the colonic bowel resection diet according to surgery most likely she will need total parenteral nutrition most likely FEN-GI: Diet according to surgery to give IV PPI twice a day Renal: Labs and output were reviewed high risk for acute kidney injury ID: To cover with the broad-spectrum antibiotics. Heme/Onc: Labs reviewed Endo: Glucose Monitored Integ/MSK: Skin Care per routine ICU Nursing Protocol to prevent ulcers. Lines: All lines examined without evidence of infection : Dispo: Critically ill Full code CODE:
[2019-04-04] MEDS ORDERED: CefOXitin 1,000 MG VIAL ONE ×2 (12:37→14:51)
[2019-04-04] MEDS ORDERED: *HR* Rocuronium Bromide 100 MG/10 ML VIAL IVC ONE (12:55)
--- NOTE | 2019-04-04 13:51 | Anesthesia Evaluation PreOp ---
Date of Encounter: 04/04/19 Time of Encounter: 13:47 - Past History Planned Operation: ex lap, Bronch Cardiac History: Arrhythmia (Afib with RVR) Pulmonary History: Smoker, Other (hypoxic with L pleural effusion. Stage 3 lung cancer undergoing chemo and radiation. 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 History: Denies Any Significant HX Other Medical History: Diabetes Type II, Thyroid (hypothyroid), Other (abdominal abscess with pneumatosis) Anesthesia History: No Prior Anesthetic Complications, Past Anesthesia : No Alcohol Use: none Drug use: none Medications and Allergies Acetaminophen [Tylenol] 500 mg PO Q6HR 03/20/19 [History] Albuterol Sulfate [Proventil Inhaler] 2 puff IH Q6HR 03/20/19 [History] Levothyroxine [Synthroid] 50 mcg PO 0630 03/20/19 [History] Metoprolol [Lopressor] 25 mg PO DAILY 03/20/19 [History] Morphine Sulfate [Arymo ER] 15 mg PO Q12H PRN 03/20/19 [History] Multivitamin [One Daily] 1 each PO DAILY 03/20/19 [History] Ondansetron HCl [Zofran] 4 mg PO Q6H PRN 03/20/19 [History] Polyethylene Glycol 3350 [MiraLAX] 17 gm PO DAILY 03/20/19 [History] Prochlorperazine Maleate [Compazine] 10 mg PO Q6HR 03/20/19 [History] metFORMIN [Glucophage] 500 mg PO BIDWM 03/20/19 [History] Lidocaine/Prilocaine CREAM [Emla] 1 gm TP ONCE 03/29/19 [History] Magic Mouthwash [Magic Mouthwash BLM] 10 ml PO QID PRN 03/29/19 [History] Allergy/AdvReac Type Severity Reaction Status Date / Time No Known Allergies Allergy Verified 03/29/19 08:36 - Meds/Allergy Pre-op Review Medications Reviewed: Yes Allergies Reviewed: Yes Beta Blockers on Current Med List: Yes (metoprolol) If Beta Blockers taken, Date/Time (Last Dose taken): 814 Anesthesia Results - Labs 04/04/19 05:17 04/04/19 05:17 Laboratory Tests 04/04/19 05:17 PT 16.6 H INR 1.5 APTT 25.4 L - Imaging EKG: report reviewed Additional studies: 03/16/2019 echocardiogram Impressions: LVEF 65%. Mild concentric left ventricular hypertrophy. Mild left ventricular diastolic dysfunction. Normal right ventricular structure and function. No significant valvular dysfunction. No evidence of pulmonary hypertension. Small to moderate pericardial effusion without echocardiographic evidence of tamponade. Pleural effusion present. chest 1V portable 04/04/2019 IMPRESSION: 1. Endotracheal tube tip is 3 cm above the ange. 2. Enteric tube tip is exclude on this exam however the proximal side port is within the stomach. 3. Left internal jugular central venous catheter tip projects over the cavoatrial junction. No pneumothorax. Anesthesia Exam Vital Signs/O2 Sat/Glucose, Most Recent Temp Pulse Resp BP Pulse Ox 96.3 F L 123 16 124/108 92 04/04/19 11:00 04/04/19 12:19 04/04/19 12:00 04/04/19 12:00 04/04/19 12:00 Blood Glucose* 173 Weight: 81 kg NPO (# of Hours): > 8 hr - HEENT Mallampati: Intubated - CHEMICAL DETECTION EXPERT LOC: Unable to assess (intubated and sedated with fentanyl and versed) - Cardiac Rhythm: Irregular Murmur: None - Pulmonary Respiratory Effort: Symmetrical (diminished on left) Anesthesia Assess/Plan ASA Score: 4, E Level of consciousness: Cooperative, Oriented Anesthetic Plan: General Monitoring Plan: A-Line Recovery Plan: ICU
[2019-04-04] MEDS ORDERED: *HR* FentaNYL (PF) 100 MCG/2 ML VIAL ONE ×2 (14:09→15:03)
[2019-04-04] MEDS ORDERED: *HR* Midazolam HCl 2 MG/2 ML VIAL ONE (14:10)
[2019-04-04] MEDS ORDERED: *HR* Propofol 200 MG/20 ML VIAL IVP ONE (14:10)
[2019-04-04] MEDS ORDERED: Heparin 1,000 UNITS/500 mL 500 ML ONE (14:11)
[2019-04-04] MEDS ORDERED: *HR* Rocuronium Bromide 50 MG/5 ML VIAL ONE ×2 (14:12→17:38)
[2019-04-04] MEDS ORDERED: Naloxone 0.4 MG/ML INJ IVP PRN ×2 (14:17→18:35)
[2019-04-04] MEDS ORDERED: EPINEPHrine 1 MG/ML VIAL ONE (14:20)
[2019-04-04] MEDS ORDERED: Artificial Tears SOLN 15 ML BOTTLE BOTH EYES PRN ×2 (14:20→18:35)
[2019-04-04] MEDS ORDERED: D5% in Water 250 ML ONE (14:20)
[2019-04-04] MEDS ORDERED: *HR* Phenylephrine 10 MG/ML VIAL ONE (14:53)
[2019-04-04] MEDS ORDERED: *HR* Midazolam HCl 5 MG/5 ML VIAL IVP ONE (15:02)
[2019-04-04] MEDS ORDERED: *HR* Vasopressin 20 UNIT/ML VIAL ONE ×3 (15:06→16:54)
[2019-04-04] MEDS ORDERED: CefOXitin 2,000 MG VIAL ONE (15:51)
[2019-04-04] MEDS ORDERED: Artificial Tears SOLN 15 ML BOTTLE BOTH EYES SCH (16:00)
--- NOTE | 2019-04-04 16:14 | Electrocardiograph Report ---
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
--- NOTE | 2019-04-04 16:15 | Electrocardiograph Report ---
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
--- NOTE | 2019-04-04 17:01 | Procedure Note ---
<Con Deras - Last Filed: 04/04/19 16:57> Date of procedure: 04/04/19 Pre-op diagnosis: Abdominal abscess Post-op diagnosis: same Procedure: A time-out was completed verifying correct patient, procedure, site, positioning, and special equipment if applicable. The patient was placed in a dependent position appropriate for central line placement based on the vein to be cannulated. The patients /left neck was prepped and draped in sterile fashion. 1% Lidocaine was used to anesthetize the surrounding skin area. A triple lumen 9-Turkish Cordis catheter was introduced into the the internal jugular using the Seldinger technique and under ultrasound guidance. The cath eter was threaded smoothly over the guide wire and appropriate blood return was obtained. Each lumen of the catheter was evacuated of air and flushed with sterile saline. The catheter was then sutured in place to the skin and a sterile dressing applied. Perfusion to the extremity distal to the point of catheter insertion was checked and found to be adequate. Attending was present for the entire procedure. Anesthesia: local, IV sedation Surgeon: Con Deras Was there an educational assistant teacher present: Yes Box Office Agent: Dede Fraire Estimated blood loss (cc): 5 IV fluids (cc): 0 Urine output (cc): 0 Specimen: none Pathology: none sent Condition: critical Disposition: ICU <Dede Fraire - Last Filed: 04/04/19 20:58> Procedure: I am the attending Dr. Fraire was present during the entire procedure and I assisted the resident and critical portions of the procedure. Postprocedure chest x-ray did not show any evidence of pneumothorax. The central venous catheter is in the acceptable portion.
--- NOTE | 2019-04-04 17:19 | Anesthesia Procedures ---
Date of Encounter: 04/04/19 Time of Encounter: 17:15 Procedures: Anesthesia - Arterial Line Consent obtained: verbal consent Time out performed: Yes Size (Gauge): 20 Technique Used: sterile prep, guide wire technique, direct puncture technique Post-Procedure: dry sterile dressing placed Patient tolerated procedure: well, no complications Complications: none Site: Radial R (US used) Vitals: Vital Signs - Last 8 Hours Temp Pulse Resp BP Pulse Ox 04/04/19 15:00 111 18 90/75 95 04/04/19 14:00 110 18 96/71 98 04/04/19 13:00 109 16 99/85 92 04/04/19 12:19 123 04/04/19 12:00 131 16 124/108 92 04/04/19 11:33 16 199 04/04/19 11:00 96.3 F L 141 16 80/51 94 04/04/19 10:25 16 98 04/04/19 09:19 134 122/73 84 Intake and Output 04/04/19 04/04/19 04/04/19 07:59 15:59 23:59 Intake Total 2150 / 2150 Output Total 0 / 0 Balance 2150 / 2150 Intake: IV Fluids 2150 / 2150 0.9 % Sodium Chloride 1,000 ML 2000 / 2000 @ 999 mls/hr IVC .Q1H1M ONE Rx# :[id number] Cardizem 50 MG In 0.9 % Sodium 50 / 50 Chloride 40 ML @ 5 MG/HR 5 mls/ hr IVC CONT EMI Rx#:[id number] Zosyn 3.375 GM In 0.9 % Sodium 100 / 100 Chloride (Mini-Bag +) 100 ML @ 25 mls/hr IVPB ONCE ONE Rx#: [id number] Output: Catheter 0 / 0 Other: Stool Size Small Weight 81.193 kg Blood Glucose* 173 Patient Weight 04/04/19 23:59 Weight 81.193 kg
--- NOTE | 2019-04-04 17:20 | Operative Note ---
Date of procedure: 04/04/19 Pre-op diagnosis: Bowel perforation, central abdominal abscess Post-op diagnosis: other (#1 perforated necrotic sigmoid colon #2 central abdominal abscess #3 septic feculent peritonitis) Procedure: #1 Zafar's procedure (sigmoid colectomy with end colostomy) #2 takedown splenic flexure #3 drainage of central abdominal abscess Anesthesia: DENNY Surgeon: Brendan Rosenberg Was there an esl instructional assistant present: Yes Insulation Worker Apprentice: Tasha Perdomo Estimated blood loss (cc): 100 Specimen: Sigmoid colon Condition: stable Disposition: ICU Procedure in Detail: After informed consent the patients taking major operative suite placed in the supine position and given adequate general endotracheal anesthesia. The patient was intubated and sedated on transfer from the ICU. The patient was not on pressors. Was prepped and draped in sterile fashion utilizing ChloraPrep and standard draping techniques. Timeout was taken and patient was identified. I made a vertical midline incision. There is a phlegmon in the left lower quadrant and central abdomen. I traced the dilated proximal small bowel down to the abscess wall. The jejunal small bowel wall was involved in the superior portion of an abscess extending from the room in the pelvis up on the mesentery of the small bowel. I mobilize the entire small bowel to the cecum. There were no other areas of obstruction. The bowel was viable and did not need to be resected area the area of pathology became very clear. There was a large amount of stool in a central abdominal abscess. Once this was suctioned there was a 4 cm area of necrosis in the sigmoid colon noted. The patient had extensive diverticular disease. There is extensive inflammatory change along the sigmoid colon extending abdomen and pelvis. I performed complete mobilization the sigmoid colon and divided the rectosigmoid junction with a contour stapler. I divided the descending sigmoid junction with a contour stapler. I divided the mesentery of the sigmoid colon with clamps and hemostatic ligatures and specimen was passed off field. Once this was done I completely irrigated the abdomen with antibiotic containing solution. The length on the descending colon was inadequate for colostomy. I decided to perform takedown splenic flexure. I perform takedown splenic flexure with 10 mm clips clamps and hemostatic ligatures. The entire left colon was mobilized. At the end of mobilization it was apparent there was another 10-12 cm of highly abnormal: Involved with diverticular disease. I decided to resect this area. I fired another staple line about 15 cm proximal to the previous staple line. This divided the colon and I subsequently divided the remaining mesentery clamps and hemostatic ligatures. I was very pleased with this segment of colon for the colostomy. Soft count was correct. The abdomen was irrigated with copious amounts of antibiotic containing solution there is no evidence of bleeding. I made an ostomy opening in the left upper quadrant and brought the colon out through the opening. Midline was closed with looped 0 PDS the skin was closed with interrupted Vicryl and skin clips with iodoform jeramy. This is a class for wound. The colostomy was matured with 3. stitches of 3-0 Vicryl. This was well vascularized and gave an excellent technical result. The patient is transferred to the care of pulmonary critical care for bronchoscopy
[2019-04-04] MEDS ORDERED: Vasopressin 40 UNIT in D5% in Water 100 ML IV SCH ×2 (17:30→18:35)
[2019-04-04] MEDS ORDERED: Cisatracurium 200 MG in 0.9 % Sodium Chloride 180 ML IVC SCH ×2 (17:30→23:30)
[2019-04-04] MEDS ORDERED: *HR* Dextrose 50 % in Water (Syg) 50 ML SYRINGE IVP PRN ×2 (17:40→18:35)
[2019-04-04] MEDS ORDERED: D5% in Water 1,000 ML IVC PRN ×2 (17:40→18:35)
[2019-04-04] MEDS ORDERED: Dextrose Gel 15 GM/37.5 ML TUBE PO PRN ×4 (17:40→18:35)
[2019-04-04] MEDS ORDERED: *HR* EPINEPHrine 1 MG/10 ML SYRINGE INTRATRACH PRN ×2 (17:55→18:35)
[2019-04-04] MEDS ORDERED: Insulin LISPRO 300 UNITS/3 ML VIAL SQ SCH (18:00)
[2019-04-04] MEDS ORDERED: Fluconazole 400 MG/200 ML 400 MG/200 ML BAG IVPB SCH ×2 (18:30→19:00)
[2019-04-04] MEDS: Norepinephrine 4 MG in 0.9 % Sodium Chloride 250 ML IVC SCH ×3 (19:25→22:55)
[2019-04-04] MEDS ORDERED: Ringers Solution, Lactated 500 ML IVC ONE (20:27)
[2019-04-04] MEDS: Piperacillin/Tazobactam 3.375 GM in 0.9 % Sodium Chloride Mini Bag 100 ML IVPB SCH (20:36)
[2019-04-04] MEDS: Artificial Tears SOLN 15 ML BOTTLE BOTH EYES SCH ×2 (20:40→23:45)
[2019-04-04] MEDS: 0.9 % Sodium Chloride 1,000 ML IVC SCH (20:42)
[2019-04-04] MEDS: Cisatracurium 200 MG in 0.9 % Sodium Chloride 180 ML IVC SCH ×2 (20:53→23:14)
[2019-04-04] MEDS ORDERED: Chlorhexidine Rinse 15 ML MOUTHWASH MM SCH ×2 (21:00)
[2019-04-04 21:05] LABS: Acinetobacter baumannii by PCR Not Detected (Not Detect); Candida albicans by PCR Not Detected (Not Detect); Candida glabrata by PCR Not Detected (Not Detect); Candida krusei by PCR Not Detected (Not Detect); Candida parapsilosis by PCR Not Detected (Not Detect); Candida tropicalis by PCR Not Detected (Not Detect); Enterobacter cloacae Cmplx PCR Not Detected (Not Detect); Enterococcus by PCR Not Detected (Not Detect); Escherichia coli by PCR Not Detected (Not Detect); Klebsiella oxytoca by PCR Not Detected (Not Detect); Klebsiella pneumoniae by PCR DETECTED (Not Detect); Proteus by PCR Not Detected (Not Detect); Pseudomonas aeruginosa by PCR Not Detected (Not Detect); Serratia marcescens by PCR Not Detected (Not Detect); Staphylococcus aureus by PCR Not Detected (Not Detect); Staphylococcus by PCR Not Detected (Not Detect); Streptococcus agalactiae(B)PCR Not Detected (Not Detect); Streptococcus by PCR Not Detected (Not Detect); Streptococcus pneumoniae PCR Not Detected (Not Detect); Streptococcus pyogenes (A) PCR Not Detected (Not Detect); blaKPC Carbapenem-Resist Gene Not Detected (Not Detect)
[2019-04-04] MEDS: Phenylephrine 10 MG in 0.9 % Sodium Chloride 250 ML IVC SCH (23:09)
[2019-04-04] MEDS: Insulin LISPRO 300 UNITS/3 ML VIAL SQ SCH (23:51)
[2019-04-04] MEDS ORDERED: 0.9 % Sodium Chloride 500 ML IVC PRN (23:59)
[2019-04-05 00:39] LABS: Eosinophils % 0.1 %; Immature Granulocytes % 0.9 % (0-4); Lymphocytes % 5.7 %; Mean Corpuscular HGB Conc 29.3 g/dL (31.6-35.5)
[2019-04-05 00:40] LABS: Basophils % 0.6 %; Hematocrit 28.7 % (35.3-44.9); Hemoglobin 8.4 g/dL (11.5-15.4); Immature Platelets 4.6 % (1.1-6.1); Lymphocytes # 0.4 K/mcL (0.6-4.6); Mean Corpuscular Hemoglobin 27.9 pg (28.0-33.3); Mean Corpuscular Volume 95.3 fL (83.0-100.0); Mean Platelet Volume 9.8 fL (9.4-12.4); Monocytes # 0.3 K/mcL (0.0-1.3); Monocytes % 4.6 %; Neutrophils # 6.1 K/mcL (1.6-8.9); Nucleated Red Blood Cells 1.7 /100 WBC (0); Red Blood Count 3.01 M/mcL (3.82-4.97); Red Cell Distribution Width 16.3 % (11.5-14.5); Segmented Neutrophils % 88.1 %; White Blood Count 6.9 K/mcL (4.3-11.1)
[2019-04-05 00:44] LABS: ABG Base Excess -8 mEq/L (-2 to 3); ABG HCO3 20 mEq/L (21-27); ABG Oxygen Saturation 97 % (95-98); ABG PCO2 58 mmHg (35-45); ABG PH 7.15 pH Units (7.32-7.45); ABG PO2 121 mmHg (85-104); ABG TCO2 22 mEq/L (20-26); Blood Gas Modality ASSIST CONTROL; Blood Gas PEEP 10 cm H2O; Blood Gas VT 450 cc
[2019-04-05 00:48] LABS: Albumin 2.1 g/dL (3.5-5.7); Albumin/Globulin Ratio 0.9 (1.1-2.2); Bilirubin,Total 0.5 mg/dL (0.3-1.0); Calcium 6.9 mg/dL (8.6-10.3); Globulin 2.3 g/dL (2.4-3.5); Potassium 4.8 mEq/L (3.5-5.1); Total Protein 4.4 g/dL (6.4-8.9)
[2019-04-05] MEDS ORDERED: Norepinephrine 8 MG in 0.9 % Sodium Chloride 500 ML IVC SCH (01:00)
[2019-04-05 01:19] LABS: Platelet Count 89 K/mcL (140-400)
[2019-04-05 01:21] LABS: Anisocytosis 1+ (Not Present); Platelet Estimate Slight Decrease (Normal); Polychromasia 1+ (Not Present)
[2019-04-05 01:30] LABS: Source of Body Fluid Left main stem lung
[2019-04-05] MEDS: 0.9 % Sodium Chloride 1,000 ML IVC SCH ×3 (01:46→04:15)
[2019-04-05] MEDS ORDERED: Albumin 25% 25gram/100mL 25 GM/100 ML IV.SOLN IVPB ONE (02:12)
[2019-04-05] MEDS ORDERED: Albumin 25% 25gram/100mL 25 GM/100 ML IV.SOLN ONE (02:27)
[2019-04-05] MEDS: Artificial Tears SOLN 15 ML BOTTLE BOTH EYES SCH (03:25)
[2019-04-05 04:11] LABS: Albumin 2.3 g/dL (3.5-5.7); Albumin/Globulin Ratio 1.2 (1.1-2.2); Bilirubin,Total 0.4 mg/dL (0.3-1.0); Calcium 6.5 mg/dL (8.6-10.3); Globulin 1.9 g/dL (2.4-3.5); Magnesium 1.9 mg/dL (1.6-2.6); Potassium 4.5 mEq/L (3.5-5.1); Total Protein 4.2 g/dL (6.4-8.9)
[2019-04-05 04:17] LABS: Appearance of Body Fluid Cloudy (Clear); Volume of Body Fluid 10 mL
[2019-04-05 04:18] LABS: Appearance of Body Fluid Cloudy (Clear); Volume of Body Fluid 9 mL
[2019-04-05] MEDS: Phenylephrine 10 MG in 0.9 % Sodium Chloride 250 ML IVC SCH (04:20)
[2019-04-05] MEDS ORDERED: Phenylephrine 50 MG in 0.9 % Sodium Chloride 250 ML IVC SCH (04:30)
[2019-04-05] MEDS ORDERED: *HR* Metoprolol 5 MG/5 ML VIAL IVP ONE (04:58)
[2019-04-05] MEDS: Insulin LISPRO 300 UNITS/3 ML VIAL SQ SCH (05:41)
[2019-04-05] MEDS: Piperacillin/Tazobactam 3.375 GM in 0.9 % Sodium Chloride Mini Bag 100 ML IVPB SCH (05:41)
[2019-04-05] MEDS ORDERED: Atropine Sulfate 1% 40 DROP/2 ML BOTTLE SL PRN (05:42)
[2019-04-05] MEDS ORDERED: Morphine Sulfate 2 MG/ML SYRINGE IVP PRN (05:42)
[2019-04-05] MEDS ORDERED: *HR* LORazepam 2 MG/ML VIAL IVP PRN (05:42)
[2019-04-05 05:50] VITALS: BP 56/46
--- NOTE | 2019-04-05 06:43 | Death Note ---
Discharge Sum: Summary - Date and Time Date of admission: 04/04/19 08:57 Date of : 04/05/19 Time of : 06:24 - Summary Details: The patient was critically ill with having abdominal abscess, intestinal necr osis, pneumatosis intestinalis, atrial fibrillation with RVR, and known lung cancer. She went to OR for treatment of bowel perforation and Central abdominal abscess however, she remained in septic shock requiring multiple vassopressors and IVF. The family was notified of her critical condition and poor prognosis. They came to her bedside and had elected for comfort care measures and for code status to be changed to DNR CC. They requested for a withdrawal of care. Time of was 06:24. There were no heart sounds, pulse, pupils were fixed and dilated. The family was at the bedside at the time of . - Additional Data Confirmation of as documented by pronouncing clinician: no pulse, no respirations, no heart sounds, pupils fixed and dilated Family: at bedside Attending physician: Dede Fraire MD Was code activated?: No Discharge Sum: Diag - PCOD Probable Cause of : Cardiac arrest Discharge Sum: Prov - Provider Primary care physician: Golden Rivera Pronouncing clinician: Sheri Sahu
[2019-04-05] MEDS ORDERED: Aminoglycoside Consult 1 EACH MC ONE (07:26)
[2019-04-05] MEDS ORDERED: Pantoprazole 40 MG VIAL IVP SCH ×2 (09:00)
== END 2019-04-05 06:24 | disposition expired | DRG 329 ==
LOC: EMEROOARM 04:42 → ICNU 08:57
PROVIDERS: ADMIT Internal Medicine Pulmonary Disease; ATTEND Internal Medicine Pulmonary Disease
PROC: ENDOBRF (2019-04-04 17:30)